=== PATIENT | male | born 1975 | race African-American/Black ===

== ENCOUNTER 2017-06-23 14:42 | Emergency (ER) | payer MEDICAID, OTHER, SELFPAY ==
[~2017-06-23] VITALS: Ht 185.4 cm; Wt 72.7 kg
[2017-06-23] MEDS ORDERED: DICY20 PO (14:58)
[2017-06-23] MEDS ORDERED: HYDR25TA84 PO (14:58)
[2017-06-23] MEDS ORDERED: VALP250 PO (14:58)
[2017-06-23 15:59] VITALS: BP 193/83
== END 2017-06-23 16:36 | disposition home or self-care (01) ==
LOC: EMS 14:43
DX: S43.402A Unspecified sprain of left shoulder joint, initial encounter (principal); I69.354 Hemiplegia and hemiparesis following cerebral infarction affecting left non-dominant side; F17.210 Nicotine dependence, cigarettes, uncomplicated; F12.10 Cannabis abuse, uncomplicated; W19.XXXA Unspecified fall, initial encounter; Y93.89 Activity, other specified; Y92.89 Other specified places as the place of occurrence of the external cause; Y99.8 Other external cause status
CPT/HCPCS: 99283; 99406